=== PATIENT | male | born 1960 | race Caucasian/White ===

== ENCOUNTER → 2017-04-29 | Outpatient (CLI) | payer BC, OTHER ==
[~2017-04-29] MED LIST: ACET325T14 PO; AMLO5TAB2 PO; CYCL-259 PO; HYDR-3237 PO; HYDR12.58 PO; MULT-516 PO; REGADENOSON 0.4 MG/5 ML SYRINGE ONE; TEMA15CA PO
== END | disposition home or self-care (01) ==
LOC: CFH 07:04
PROVIDERS: ATTEND Family Medicine
DX: R07.9 Chest pain, unspecified (principal)
CPT/HCPCS: 78452; 93017; A9502; J2785